=== PATIENT | male | born 1950 | race Caucasian/White ===

== ENCOUNTER → 2018-04-11 13:01 | Outpatient (CLI) | payer MEDICARE, OTHER, SELFPAY ==
--- NOTE | 2018-04-11 13:06 | DI.RAD.S_ITS ---
PROCEDURE: XR LUMBAR SPINE 2-3V INDICATIONS: Muscle weakness lower extremities; tingling lower extremitie TECHNIQUE: 3 views of the lumbar spine were acquired. COMPARISON: None. FINDINGS: Bones: 5 [id number] vertebrae are present. There is normal bony alignment. No vertebral body compression fractures. No suspicious bony lesions. There is mild degenerative disc disease at L1-L2, L2-L3, L3 and L4. Moderate facet arthropathy at L5-S1. Soft tissues: Overlying bowel gas pattern is normal. No suspicious soft tissue calcifications. IMPRESSION: Degenerative disc disease and facet arthropathy in lumbar spine as described. Dictated by: Link Morrissey M.D. on 04/11/2018 at 16:33 Approved by: Link Morrissey M.D. on 04/11/2018 at 16:35
== END ==
PROVIDERS: Visit Provider Physician Assistant
DX: M62.81 Muscle weakness (generalized) (principal); R20.2 Paresthesia of skin; M51.36 Other intervertebral disc degeneration, lumbar region; M47.817 Spondylosis without myelopathy or radiculopathy, lumbosacral region
CPT/HCPCS: 72100

== ENCOUNTER → 2018-04-17 09:48 | Outpatient (CLI) | payer MEDICARE, OTHER, SELFPAY ==
[2018-04-20 02:41] LABS: Fecal Immunochemical Test NOT DETECTED
== END ==
PROVIDERS: Visit Provider Physician Assistant
DX: Z12.11 Encounter for screening for malignant neoplasm of colon (principal)
CPT/HCPCS: 82274

== ENCOUNTER → 2018-05-02 09:27 | Outpatient (CLI) | payer MEDICARE, OTHER, SELFPAY ==
--- NOTE | 2018-05-02 09:29 | DI.MRI.S_ITS ---
PROCEDURE: MR LUMBAR SPINE WO CON INDICATIONS: Numbness tingling in bilateral lower extremity TECHNIQUE: Noncontrast sagittal T1 spin echo and T2 fast echo, sagittal STIR, axial T1 and T2 fast spin echo through the lumbar spine. In cases with scoliosis, additional coronal T2 fast spin echo may be performed. COMPARISON: [facility], CR, XR LUMBAR SPINE 2-3V, 04/11/2018, 12:42. FINDINGS: Image quality: Excellent. Alignment and Curvature: 5 lumbar type vertebral bodies are present by plain film. There is mild grade 1 retrolisthesis of L1 on L2, L2 on L3, and L3 on L4. Bone Marrow: Marrow is of normal overall signal. No acute vertebral body compression fractures. Mild reactive signal within the endplates adjacent to the L1-L2, L2-L3, and L5-S1 intervertebral discs. Spinal Cord: Conus medullaris terminates at the lower L1 level. Visualized cord demonstrates normal signal and size. Paraspinous Soft Tissues: No paravertebral masses. There is a well circumscribed 21 mm diameter high T2 intensity focus within the inferomedial spleen. L1-L2: Mild disc desiccation and diffuse disc bulge. Mild facet hypertrophy bilaterally. Mild canal stenosis. Mild bilateral foraminal stenosis. L2-L3: Mild disc unless and desiccation. Mild diffuse disc bulge. Mild facet and ligamentum flavum hypertrophy. Mild epidural lipomatosis. Mild canal stenosis. Mild foraminal stenosis bilaterally. L3-L4: Mild disc loss and desiccation. Mild diffuse disc bulge. Mild facet and ligament flavum hypertrophy bilaterally. Mild canal stenosis. Moderate foraminal stenosis bilaterally. L4-L5: Mild disc height loss and desiccation. Mild diffuse disc bulge. Mild facet and ligament flavum hypertrophy bilaterally. Mild canal stenosis. Moderate bilateral foraminal stenosis. L5-S1: Mild disc unless and desiccation. Mild diffuse disc bulge. Central annular tear. Mild facet hypertrophy bilaterally. No significant canal stenosis. Moderate left greater than right foraminal stenosis. IMPRESSION: 1. Multilevel degenerative disc and facet disease, as well as ligamentum flavum hypertrophy and epidural lipomatosis. 2. Mild multilevel canal stenoses. 3. Multilevel foraminal stenoses, worst at L3-L4, L4-L5, and L5-S1 bilaterally, where there are moderate foraminal stenoses present. Dictated by: Waqar Newberry M.D. on 05/02/2018 at 14:58 Approved by: Waqar Newberry M.D. on 05/02/2018 at 15:02
== END ==
PROVIDERS: Visit Provider Physician Assistant
DX: M51.36 Other intervertebral disc degeneration, lumbar region (principal); M51.37 Other intervertebral disc degeneration, lumbosacral region; M48.061 Spinal stenosis, lumbar region without neurogenic claudication; M48.07 Spinal stenosis, lumbosacral region; M47.816 Spondylosis without myelopathy or radiculopathy, lumbar region; R20.0 Anesthesia of skin; R20.2 Paresthesia of skin; E88.2 Lipomatosis, not elsewhere classified; Z87.39 Personal history of other diseases of the musculoskeletal system and connective tissue
CPT/HCPCS: 72148

== ENCOUNTER → 2018-05-10 16:47 | Outpatient (CLI) | payer MEDICARE, OTHER, SELFPAY ==
[2018-05-10 17:08] LABS: Add Manual Diff / Slide Review NO; Basophils Percent Auto 0.6 % (0-2); Eosinophils Percent Auto 2.1 % (2-4); Hemoglobin 15.8 g/dL (13.5-17.5); Lymphocytes Percent Auto 25.2 % (25-40); Mean Corpuscular HGB Conc 34.3 % (30-36); Mean Corpuscular Hemoglobin 32.6 PG (26-34); Mean Corpuscular Volume 95.1 fL (80-100); Monocytes Percent Auto 6.4 % (3-14); Neutrophils Absolute Auto 4800 /uL (3000-5900); Neutrophils Percent Auto 65.7 % (50-75); Platelet Count 216 X10^3/uL (150-400); Red Blood Cell Count 4.84 X10^6/uL (4.5-5.9); Red Cell Distribution Width 12.8 % (11.6-14.8); White Blood Cell Count 7.2 X10^3/uL (4.5-11.0)
[2018-05-10 17:38] LABS: Erythrocyte Sedimentation Rate 3 MM/HR (0-15)
[2018-05-10 18:22] LABS: C-Reactive Protein Quant < 0.5 mg/dL (<1.0)
== END ==
PROVIDERS: PCP Physician Assistant; Visit Provider Ophthalmology
DX: M31.6 Other giant cell arteritis (principal); R51 Headache
CPT/HCPCS: 36415; 85025; 85651; 86140

== ENCOUNTER → 2018-10-04 08:21 | Outpatient (CLI) | payer MEDICARE, OTHER, SELFPAY ==
[2018-10-04 09:31] LABS: Alanine Aminotransferase 32 IU/L (21-72); Albumin 4.1 g/dL (3.5-5.0); Albumin Globulin Ratio 1.5 (1.0-2.8); Alkaline Phosphatase 74 U/L (38-126); Aspartate Aminotransferase 26 IU/L (17-59); BUN Creatinine Ratio 12.7 (6-22); Bilirubin Total 0.8 mg/dL (0.2-1.3); Blood Urea Nitrogen 14 mg/dL (9-20); Calcium 9.5 mg/dL (8.4-10.2); Carbon Dioxide 29 mmol/L (22-32); Chloride 104 mmol/L (98-107); Cholesterol 234 mg/dL (140-199); Estimated Glomerular Filt Rate > 60.0 mL/min (>60); Globulin 2.8 g/dL (1.7-4.1); Glucose 89 mg/dL (80-110); HDL Cholesterol 54 mg/dL (40-60); HEMOLYSIS < 15 (0-50); LDL Cholesterol Calculated 163 mg/dL (<100); Potassium 3.9 mmol/L (3.4-5.1); Sodium 141 mmol/L (137-145); Total Protein 6.9 g/dL (6.3-8.2); Triglycerides 85 mg/dL (35-150)
== END ==
PROVIDERS: PCP Physician Assistant; Visit Provider Physician Assistant
DX: E78.5 Hyperlipidemia, unspecified (principal)
CPT/HCPCS: 36415; 80053; 80061

== ENCOUNTER → 2019-05-31 09:19 | Outpatient (CLI) | payer MEDICARE, OTHER, SELFPAY ==
--- NOTE | 2019-05-31 | DI.MRI.S_ITS ---
PROCEDURE: MR ANKLE LT WO CON INDICATIONS: Pain in left ankle and joints of left foot TECHNIQUE: Noncontrast sagittal T1 spin echo and T2 fast spin echo with fat saturation, axial proton density fast spin echo and T2 fast spin echo with fat saturation, coronal T1 spin echo and T2 fast spin echo with fat saturation through the ankle/hindfoot. COMPARISON: None. FINDINGS: Image quality: Excellent. Bones and joints: There is extensive marrow edema involving the medial portion of talar dome with suggestion of 1.3 x 1.4 x 0.6 cm osteochondral lesion involving medial talar dome. There is also marrow edema seen in adjacent medial malleolus with 9 mm intraosseous cyst formation concerning for small osteochondral lesion involving lateral periphery of the medial malleolus. Edema involving the anterolateral aspect of distal tibial plafond is seen with no discrete osteochondral lesion or fracture line noted suggestive of contusion. Osteoarthritic changes are noted in tibiotalar joint and subtalar joint. No other area of abnormal marrow signal is seen. There is small to moderate amount of tibiotalar joint effusion with suggestion of 2 small intra-articular loose body within anterior tibiotalar joint measures 7 and 5 mm in size. Medial structures: There is very low-grade tenosynovitis involving the flexor tendons with small amount of fluid distending the tendon sheath at the level of the talus. The posterior tibial neurovascular bundle appears normal within the tarsal tunnel, without extrinsic mass effect. There is suggestion of low-grade sprain/intrasubstance partial thickness involving both deep and superficial fibers of deltoid ligament. The spring ligament components (superomedial calcaneonavicular, medioplantar oblique calcaneonavicular, and inferoplantar longitudinal ligaments) are intact. Lateral structures: The anterior talofibular, and calcaneofibular ligaments appear intact. Thickened posterior talofibular ligament is seen suggestive of low-grade ligament sprain. More superiorly, the anterior and posterior tibiofibular ligaments appear intact, as is the intermalleolar ligament. The tibiofibular syndesmosis is normal in width at 2 mm or less. The peroneus longus and brevis tendons demonstrate normal location and morphology. Adjacent bony peroneal tubercle and retrotrochlear prominence are normal in size. The sinus tarsi demonstrates normal fatty signal, without edema, fibrosis, or cyst formation. Visualized sinus tarsi components (cervical ligament, interosseous talocalcaneal ligament, roots of the inferior extensor retinaculum) appear normal. The calcaneonavicular and calcaneocuboid components of the bifurcate ligament appear intact. The dorsal calcaneocuboid ligament appears intact. Anterior structures: The tibialis anterior, extensor hallucis longus, and extensor digitorum longus tendons appear intact. The dorsal talonavicular ligament appears intact. Posterior and plantar structures: Achilles tendon is intact. Medial and lateral bands of the plantar fascia are of normal thickness. No abductor digiti quinti muscle atrophy to suggest Ibarra neuropathy. IMPRESSION: 1. Moderate osteoarthritic changes involving tibiotalar joint with suggestion of 1.3 x 1.4 x 0.6 cm osteochondral lesion involving medial talar dome and small 9 mm osteochondral lesion involving adjacent lateral periphery of medial malleolus with marrow edema. Bony contusion involving anterior lateral periphery of distal tibial plafond. 2. Small to moderate amount of tibiotalar joint effusion with suggestion of 2 small intra-articular loose bodies as above. 3. Very low-grade tenosynovitis involving the flexor tendons. 4. Sprain/low-grade intrasubstance partial-thickness tear involving deep and superficial fibers of deltoid ligament. Low-grade posterior talofibular ligament sprain. Dictated by: Bandar Jimenez M.D. on 06/02/2019 at 11:21 Approved by: Bandar Jimenez M.D. on 06/02/2019 at 11:57
== END ==
PROVIDERS: PCP Physician Assistant; Visit Provider Orthopaedic Surgery Foot and Ankle Surgery
DX: M25.572 Pain in left ankle and joints of left foot (principal); M25.472 Effusion, left ankle; S93.422A Sprain of deltoid ligament of left ankle, initial encounter; S93.492A Sprain of other ligament of left ankle, initial encounter
CPT/HCPCS: 73721

== ENCOUNTER → 2019-06-06 09:54 | Outpatient (CLI) | payer MEDICARE, OTHER, SELFPAY ==
[2019-06-06 10:45] LABS: Add Manual Diff / Slide Review NO; Basophils Absolute Auto 100 /uL (0-100); Basophils Percent Auto 1.1 % (0-2); Eosinophils Absolute Auto 100 /uL (0-450); Eosinophils Percent Auto 2.1 % (2-4); Hematocrit 44.5 % (41-53); Hemoglobin 15.2 g/dL (13.5-17.5); Lymphocytes Absolute Auto 1600 /uL (1100-4500); Lymphocytes Percent Auto 27.7 % (25-40); Mean Corpuscular HGB Conc 34.1 % (30-36); Mean Corpuscular Hemoglobin 32.3 PG (26-34); Mean Corpuscular Volume 94.9 fL (80-100); Monocytes Absolute Auto 400 /uL (0-900); Monocytes Percent Auto 7.2 % (3-14); Neutrophils Absolute Auto 3600 /uL (1500-7000); Neutrophils Percent Auto 61.9 % (50-75); Platelet Count 220 X10^3/uL (150-400); Red Blood Cell Count 4.69 X10^6/uL (4.5-5.9); Red Cell Distribution Width 12.9 % (11.6-14.8); White Blood Cell Count 5.9 X10^3/uL (4.5-11.0)
[2019-06-06 11:05] LABS: Albumin 4.4 g/dL (3.5-5.0); BUN Creatinine Ratio 16.7 (6-22); Blood Urea Nitrogen 15 mg/dL (9-20); Carbon Dioxide 30 mmol/L (22-32); Chloride 104 mmol/L (98-107); Estimated Glomerular Filt Rate > 60.0 mL/min (>60); Glucose 76 mg/dL (80-110); HEMOLYSIS < 15 (0-50); Phosphorous 2.4 mg/dL (2.3-3.7); Potassium 4.5 mmol/L (3.4-5.1); Sodium 141 mmol/L (137-145)
== END ==
PROVIDERS: PCP Physician Assistant; Visit Provider Orthopaedic Surgery Foot and Ankle Surgery
DX: Z01.818 Encounter for other preprocedural examination (principal); Z01.812 Encounter for preprocedural laboratory examination; M19.072 Primary osteoarthritis, left ankle and foot; M25.872 Other specified joint disorders, left ankle and foot; M95.8 Other specified acquired deformities of musculoskeletal system
CPT/HCPCS: 36415; 80069; 85025; 93005; 93010

== ENCOUNTER → 2022-03-30 13:43 | Outpatient (CLI) | payer MEDICARE, OTHER, SELFPAY ==
--- NOTE | 2022-03-30 13:47 | DI.CT.S_ITS ---
PROCEDURE: CT LE LT W CON INDICATIONS: Primary osteoarthritis, left ankle and foot TECHNIQUE: Noncontrast 1-1.5 mm axial sections acquired from above the tibiotalar joint to the bottom of the calcaneus, with coronal and sagittal reformats. COMPARISON: [facility], CR, XR ANKLE 3 VIEWS WEIGHT BEARING LEFT, 09/23/2019, 15:55. FINDINGS: Image quality: Excellent. Bones: Moderate to severe tibiotalar joint osteoarthritic changes are seen with suggestion of multiple osteochondral lesions involving medial weight-bearing portion of talar dome measures in aggregate 1.5 x 1.1 x 0.5 cm in size. Additional smaller osteochondral injuries also noted in adjacent distal tibial plafond. Moderate osteoarthritic changes also seen in subtalar joint with joint space narrowing and subchondral sclerosis. Dksh-qy-zhutuuyk osteoarthritic changes are seen in midfoot and forefoot joints. No suspicious bony lesion. No fracture or dislocation. Soft tissues: There is small amount of tibiotalar joint effusion. No abnormal soft tissue calcifications or intra-articular loose bodies. No gross full-thickness tendon rupture. Plantar fascia is intact. Achilles tendon is intact. IMPRESSION: 1. 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 Moderate subtalar joint osteoarthritis. 2. Vviy-qs-kmpblfzc osteoarthritic changes are noted throughout rest of midfoot and forefoot. 3. No fracture or dislocation. No suspicious bony lesion. 4. No gross soft tissue abnormalities. No significant joint effusion or abnormal soft tissue calcifications. Dictated by: Bandar Jimenez M.D. on 03/30/2022 at 15:12 Approved by: Bandar Jimenez M.D. on 03/30/2022 at 15:15
== END ==
PROVIDERS: PCP Physician Assistant; Referring Provider Podiatrist; Visit Provider Podiatrist
DX: M19.072 Primary osteoarthritis, left ankle and foot (principal)
CPT/HCPCS: 73700

== ENCOUNTER → 2022-06-02 09:53 | Outpatient (CLI) | payer MEDICARE, OTHER, SELFPAY ==
[2022-06-02 10:53] LABS: Add Manual Diff / Slide Review NO; Basophils Absolute Auto 100 /uL (0-100); Basophils Percent Auto 1.2 % (0-2); Eosinophils Absolute Auto 100 /uL (0-450); Hematocrit 44.4 % (41-53); Hemoglobin 15.1 g/dL (13.5-17.5); Lymphocytes Absolute Auto 1200 /uL (1100-4500); Lymphocytes Percent Auto 24.5 % (25-40); Mean Corpuscular HGB Conc 33.9 % (30-36); Mean Corpuscular Hemoglobin 32.2 PG (26-34); Mean Corpuscular Volume 94.8 fL (80-100); Monocytes Absolute Auto 300 /uL (0-900); Monocytes Percent Auto 7.1 % (3-14); Neutrophils Absolute Auto 3100 /uL (1500-7000); Neutrophils Percent Auto 64.2 % (50-75); Platelet Count 218 X10^3/uL (150-400); Red Blood Cell Count 4.68 X10^6/uL (4.5-5.9); Red Cell Distribution Width 13.1 % (11.6-14.8); White Blood Cell Count 4.8 X10^3/uL (4.5-11.0)
[2022-06-02 11:00] LABS: Hemoglobin A1C% w Est Avg Glu 4.9 % (4.0-6.0)
[2022-06-02 11:10] LABS: Alanine Aminotransferase 19 IU/L (<50); Albumin 4.1 g/dL (3.5-5.0); Albumin Globulin Ratio 1.5 (1.0-2.8); Alkaline Phosphatase 70 U/L (38-126); Aspartate Aminotransferase 22 IU/L (17-59); BUN Creatinine Ratio 12.6 (6-22); Bilirubin Total 0.7 mg/dL (0.2-1.3); Blood Urea Nitrogen 13 mg/dL (9-20); Calcium 9.6 mg/dL (8.4-10.2); Carbon Dioxide 30 mmol/L (22-32); Chloride 103 mmol/L (98-107); Estimated Glomerular Filt Rate > 60 mL/min (>60); Globulin 2.8 g/dL (1.7-4.1); Glucose 85 mg/dL (80-110); HEMOLYSIS < 15 (0-50); Potassium 4.6 mmol/L (3.4-5.1); Sodium 140 mmol/L (137-145); Total Protein 6.9 g/dL (6.3-8.2)
== END ==
PROVIDERS: PCP Physician Assistant; Referring Provider Orthopaedic Surgery Foot and Ankle Surgery; Visit Provider Orthopaedic Surgery Foot and Ankle Surgery
DX: Z01.818 Encounter for other preprocedural examination (principal); R73.9 Hyperglycemia, unspecified; Z01.812 Encounter for preprocedural laboratory examination
CPT/HCPCS: 36415; 80053; 83036; 85025; 93005

== ENCOUNTER → 2022-06-28 09:34 | Outpatient (CLI) | payer MEDICARE, OTHER, SELFPAY ==
[2022-06-28 10:08] LABS: COVID19 -Nasal RAPID Negative (Negative)
== END ==
PROVIDERS: PCP Family Medicine; Referring Provider Orthopaedic Surgery Foot and Ankle Surgery; Visit Provider Orthopaedic Surgery Foot and Ankle Surgery
DX: Z11.59 Encounter for screening for other viral diseases (principal)
CPT/HCPCS: 87635; C9803

== ENCOUNTER 2022-06-30 06:20 | Day surgery (SDC) | payer MEDICARE, OTHER, SELFPAY ==
[2022-06-28 12:07] VITALS: BMI 23.5
[2022-06-30] VITALS (12 sets, daily range): BP systolic 121–139; BP diastolic 73–90; PULSE 57–97; RESP 10–26; TEMP 36.2–36.6; O2SAT 93–99; BMI 23.5
--- NOTE | 2022-06-30 | DI.RAD.S_ITS ---
PROCEDURE: XR ANKLE LT 2V INDICATIONS: TOTAL ANKLE TECHNIQUE: 6 intraoperative fluoroscopic images obtained. COMPARISON: None. FINDINGS: Six intraoperative fluoroscopic images obtained from ankle arthroplasty. IMPRESSION: Intraprocedural fluoroscopy was provided for guidance and anatomical localization. Please see the procedure report for further details. Dictated by: Romulo Ochoa M.D. on 06/30/2022 at 14:54 Approved by: Romulo Ochoa M.D. on 06/30/2022 at 14:58
--- NOTE | 2022-06-30 07:02 | PM.PREOP ---
Pre-operative Note COVID-19 COVID-19 status: Negative Interval Note History & Physical reviewed/Exam performed by Physician: Yes Changes to H&P: No
[2022-06-30] MEDS: LACTATED RINGERS 1,000 ML 42 ML IV ×2 (07:35→10:27)
[2022-06-30] MEDS: CEFAZOLIN 2 GM/100 ML PREMIX 100 ML IV (08:20)
--- NOTE | 2022-06-30 08:25 | SUR.OPER ---
Supine on padded OR bed, head on pillow, arms secured on padded arm boards at <90 degrees abduction, legs uncrossed, safety belt at thighs. LEFT ANKLE SUPPORTED ON 3 BATH BLANKETS AND SECURED WITH TAPE. RIGHT LEG SECURED WITH BLANKET AND CLOTH TAPE.
[2022-06-30] MEDS: BUPIVACAINE 0.25% (PF) 30 ML, EPINEPHrine 0.15 MG INJ (08:40)
--- NOTE | 2022-06-30 11:31 | PM.OP.1 ---
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 He now has end-stage ankle arthritis and has been indicated for total ankle arthroplasty as a motion sparing surgery. The risks and benefits of the procedure have been discussed with the patient and given the opportunity to ask questions. The risks of surgery include but are not limited to infection, malunion, nonunion, fracture, implant loosening, need for additional procedures, persistence of pain, damage to nerves and blood vessels, posttraumatic arthritis, DVT, PE, coardiopulmonary complications and . The patient expressed a thorough understanding of the risks and benefits of surgery and has elected to proceed. Consent was signed in the office. During the operation, the services of a physician surgical elastic knitter hand frame were medically indicated and necessary to provide the exposure of the operative site for the surgical procedure and to maintain the limb in a proper position to carry out the operation safely and efficiently. Without a qualified patient support assistant being present this would extended the operative procedure and made the procedure technically more difficult to perform. Surgeon: Gabriela [employer] Utility Worker: Jeanna Romeo Anesthesia Type: General and Peripheral nerve block Operative Notes Findings: End-stage tibiotalar arthritis after resection implants were placed in appropriate alignment and the ankle was stable without need for additional ligamentous balancing procedures Closure Type: primary Specimen(s): none sent Estimated Blood Loss (mL): 50 Blood products transfused: none Tourniquet time (min): 120 Procedure in detail: Procedure total ankle replacement CPT code 49681 Preop diagnosis ankle arthritis Patient has end-stage ankle arthritis. They have been indicated for total ankle arthroplasty. The risks and benefits of the procedure have been discussed with the patient in the been given the opportunity ask questions. The risks of surgery include but are not limited to infection, malunion nonunion, fracture, persistent pain, damage to nerves and blood vessels, implant failure, DVT PE cardiopulmonary complications and . The patient expressed their understanding of the risks and benefits and has elected to proceed. Consent was signed. Additionally we discussed the need for additional procedures such as ligament balancing osteotomies and Achilles tendon lengthening. We discussed the intraoperative risk of fracture. The patient has been optimized medically. During the operation the services of an is medically trained patient support assistant was medically indicated and necessary to provide the exposure of the operative site for the surgical procedure and maintained alignment proper position to carry out the operation safely and efficiently. Without a qualified patient support assistant being present this would extend the operative procedure and make that procedure technically more difficult to perform. Patient was seen in the preoperative area and the site of surgery was marked informed consent confirmed. Final questions were answered. The left ankle was marked. The patient was also seen by the anesthesiologist and a peripheral nerve block was placed for postoperative pain control. The patient was brought back to the operating room by the anesthesia team and positioned supine on operative table. All bony problems well padded. A well-padded thigh tourniquet was placed on the upper thigh. An ipsilateral thigh bump was placed. A bump was placed on the calf with a heel hang free. The operative lower extremity was then prepped and draped in the standard sterile fashion. A formal time-out procedure was performed confirming the patient site of surgery and administration of preoperative antibiotics which was 2 g of Ancef. Implants were in the room accounted for. All were in agreement. Attention was turned to the operative lower extremity an Esmarch bandage was used for exsanguination the tourniquet elevated the thigh to 250 mm of mercury. A standard anterior approach to the ankle was drawn out over the leg approximately 12 cm in length and 1 cm lateral to the tibial crest extended longitudinally bisecting the tibiotalar joint and talonavicular joint. This was taken down through the skin and subcutaneous tissues with care taken to isolate and protect the superficial peroneal nerve branch. Next the extensor retinaculum was opened and tagged with an 0 Vicryl for later repair. The EHL tendon sheath was opened and the EHL and neurovascular bundle were retracted medially and the interval between the EHL and EDL was utilized. And the tibialis anterior was kept into its sheath and retracted medially. This brought us down directly on the anterior tibia. Dissection was taken all the way to the talonavicular joint to expose the talus. The capsule was divided and retracted. The joint demonstrated end-stage tibiotalar arthritis with large anterior distal tibial spurs and talar spurring. The Bovie cautery and elevators and scalpel were used to remove the periosteum along the anterior tibia and expose the joint. retractors were used to protect the EHL and neurovascular bundle. An osteotome was then used to remove the anterior distal tibial osteophytes and expose the tibiotalar joint line level at the dome of the plafond. At this point attention was turned to the tibial tubercle and a pin was placed in the tubercle with care to make this perpendicular to the shaft in line with osteotome placed and the ankle joint. Next the jig was placed in the 0 slot and then slid down to the level of the osteotome. The height was locked into place. Final adjustments were made for varus and valgus as well as rotation once this was appropriate these were locked in place and the final height of the resection was marked at [address] in [address]. The sizing block was then placed and a size 0 tibia was selected. The tibial guide with the drill holes for the gutters was utilized. Next a flat cut talar guide was placed and pinned this was checked on the lateral to make sure the resection was appropriate-since the size was so small I had to pin the ankle in neutral position through the calcaneus as the talar cut guide pins were into the talonavicular joint. Once this was appropriate this was pinned in place in the tibia and flat cut talus cuts were all made. The talar cut was completed to the level of the pin this was withdrawn and the talar cut completed. The tibia and talus were removed. The reciprocal saw was used to clean of the medial lateral gutters on the talus and removed any remaining osteophytes. Talus was then sized. On the back table of this still looked like it would be able to fit a 1. A 1 tibia was also fit in once the bone cuts were made in this was a good fit as well. A size 8 poly was used. The trials were taken through range of motion excellent range of motion and mediolateral stability. Next the tibial tray was pinned in place. Two drill holes were drilled and then the larger hole for the keel was drilled to the stop. The drill guide for the talus was also drilled. Final irrigation was completed. The final implants were opened. Talus was placed and mallet it down. This was confirmed on the lateral and AP views with appropriate alignment bony contact. Next the tibia was placed in the standard fashion confirming appropriate alignment in the lateral while impacting. There is no evidence of lift-off. There was excellent bony contact. Once this was completed additional bone from the resection was grafted into the anterior keel location. Range of motion was checked. It the foot was plantigrade. The ankle was stable to varus and valgus stress testing no significant laxity was noted. Final x-rays were taken AP, mortise and lateral images as well as dorsiflexion plantar flexion images. These were saved. Tourniquet was released. Hemostasis was achieved. Wound was irrigated capsule was closed with 0 Vicryl. Retinaculum was closed with 2-0 PDS. Subcutaneous tissue was closed with 4-0 Monocryl and skin with 3-0 nylon. Local anesthetic was infiltrated for postoperative pain control. Dressing was placed with Xeroform, gauze, Webril, bulky Nguyen cotton and a posterior and U splint. The patient was woken from anesthesia and taken to recovery room in good condition. There no immediate complications with this procedure. Complications: none Post-operative Condition: stable Disposition: PACU Plan for aftercare: Aftercare will be nonweightbearing on the lower extremity with strict elevation above the heart level. Start DVT prophylaxis with aspirin 325 mg on postop day 1. 5 days of Toradol and 3 days gabapentin for multimodal pain control as well as prescriptions for oxycodone. And Zofran for nausea and Colace as a stool softener. Oxycodone is a narcotic pain medication.
--- NOTE | 2022-06-30 11:32 | SUR.PREOP ---
Block start time [0730] . Monitoring initiated and maintained throughout procedure. Oxygen and medications given per anesthesiologist instructions. Patient remained stable throughout procedure, no adverse reactions noted. Block end time [0750].
[2022-06-30] MEDS: ONDANSETRON 4 MG/2 ML INJ IV (11:33)
== END 2022-06-30 12:50 | disposition home or self-care (01) ==
PROVIDERS: PCP Family Medicine; Referring Provider Orthopaedic Surgery Foot and Ankle Surgery; Visit Provider Orthopaedic Surgery Foot and Ankle Surgery
PROC: (CPT 27702; principal; 2022-06-30 07:45)
DX: M19.072 Primary osteoarthritis, left ankle and foot (principal); G89.18 Other acute postprocedural pain
CPT/HCPCS: 27702; 64450; 73600; 76000; C1776; J0171; J0690; J1100; J1885; J2250; J2405; J2704; J3010